=== PATIENT | male | born 1965 | race Hispanic/Latino ===

== ENCOUNTER 2017-03-23 08:41 | Emergency (ER) | payer MEDICAID, OTHER ==
[2017-03-23 09:05] VITALS: BMI 24.3
[2017-03-23 09:12] VITALS: TEMP 98
--- NOTE | 2017-03-23 09:25 | ED PDOC ---
Arrival/HPI <Mark Ferguson - Last Filed: 03/23/17 10:23> - General Historian: Patient - History of Present Illness Time/Duration: > week Symptom Onset: Gradual Symptom Course: Unchanged Quality: Stabbing Severity Level: Moderate Context: Exertion <Baldev Turner - Last Filed: 03/23/17 11:17> - General Chief Complaint: Back Pain Time Seen by Provider: 03/23/17 08:46 - History of Present Illness Narrative History of Present Illness (Text): 03/23/17 09:22 This is a 52 yo male, hx of HIV, presenting with chief complaint of neck pain x 3 weeks. Pain wasn't getting any better so pt came in. Says it started when he was picking up his dog. It radiates into his left shoulder. Has never happened before. Describes sensation as "sharp." Did not take any meds at home for the pain. Pain comes and goes. Lasts about 15-20 mins when it comes. Moving head around makes it worse. Denies trauma. Pt reports undetectable viral load and normal CD4 count. Pt follows regularly with ID. PMH: HIV PSH: lung biopsy Allergies: PCN FH: DM, cancer Home meds: complera Social hx: current smoker, 1 ppd. Denies drinking. Occasional marijuana user. 03/23/17 09:28 03/23/17 09:36 (Baldev Turner) Past Medical History - Provider Review Nursing Documentation Reviewed: Yes - Past History Past History: Non-Contributing - Infectious Disease Hx of Infectious Diseases: None - Tetanus Immunization Tetanus Immunization: Unknown - Hematological/Oncological Hx HIV: Yes - Psychiatric Hx Psychophysiologic Disorder: No Hx Substance Use: Yes (CANNABIS) - Surgical History Other/Comment: BX OF LUNG - Anesthesia Hx Anesthesia: Yes Hx Anesthesia Reactions: No Hx Malignant Hyperthermia: No - Suicidal Assessment Feels Threatened In Home Enviroment: No <Baldev Turner - Last Filed: 03/23/17 11:17> Family/Social History - Physician Review Nursing Documentation Reviewed: Yes Family/Social History: Diabetes, Neoplasm/Cancer Smoking Status: Heavy Smoker > 10 Cigarettes Daily Hx Alcohol Use: Yes Hx Substance Use: Yes (CANNABIS) Hx Substance Use Treatment: No <Baldev Turner - Last Filed: 03/23/17 11:17> Allergies/Home Meds <Tolerdonn,Mark - Last Filed: 03/23/17 10:23> <Baldev Turner - Last Filed: 03/23/17 11:17> Allergies/Adverse Reactions: Allergies Penicillins Allergy (Verified 09/25/15 12:16) RASH nuts Allergy (Uncoded 09/25/15 12:16) RASH Home Medications: Home Meds Medication Instructions Recorded Confirmed Emtricita/rilpivir/tenofovir 1 tab PO DAILY 06/11/14 03/23/17 [Complera 200 mg-25 mg-300 mg] Review of Systems - Review of Systems Constitutional: absent: Fatigue, Weight Change Eyes: absent: Vision Changes, Photophobia ENT: absent: Hearing Changes, Tinnitus Respiratory: absent: SOB, Cough Cardiovascular: absent: Chest Pain, Palpitations Gastrointestinal: absent: Abdominal Pain, Stool Changes Genitourinary Male: absent: Dysuria, Frequency Musculoskeletal: Neck Pain Skin: absent: Rash, Pruritis Neurological: absent: Headache, Dizziness Endocrine: absent: Diaphoresis, Polyuria Hemo/Lymphatic: absent: Adenopathy, Easy Bleeding Psychiatric: absent: Anxiety, Depression <Baldev Turner - Last Filed: 03/23/17 11:17> Physical Exam Temperature: Afebrile Blood Pressure: Normal Pulse: Tachycardic Respiratory Rate: Normal <Mark Ferguson - Last Filed: 03/23/17 10:23> Vital Signs Reviewed: Yes - Systems Exam Head: Present: Atraumatic, Normocephalic Pupils: Present: PERRL Extroacular Muscles: Present: EOMI Conjunctiva: Present: Normal Mouth: Present: Moist Mucous Membranes Neck: No: Normal Range of Motion (slightly reduced range of motion, flexion, extension), Meningeal Signs, MIDLINE TENDERNESS, Paraspinal Tenderness Respiratory/Chest: Present: Clear to Auscultation. No: Respiratory Distress Cardiovascular: Present: Normal S1, S2 Abdomen: Present: Normal Bowel Sounds. No: Tenderness, Peritoneal Signs Upper Extremity: Present: Normal Inspection. No: Normal ROM (left ext reduced active, passive rom) Lower Extremity: Present: Normal Inspection. No: Edema Neurological: Present: CN II-XII Intact, Speech Normal Skin: Present: Warm, Dry Psychiatric: Present: Alert, Oriented x 3, Normal Insight, Normal Concentration <Baldev Turner - Last Filed: 03/23/17 11:17> Vital Signs Temp Pulse Resp BP Pulse Ox 03/23/17 11:04 89 18 120/80 99 03/23/17 09:08 98 F 94 H 16 118/81 97 Medical Decision Making <Mark Ferguson - Last Filed: 03/23/17 10:23> <Baldev Turner - Last Filed: 03/23/17 11:17> ED Course and Treatment: 03/23/17 09:35 Seen and examined with the resident. Our history and physical exam reveals an HIV-positive gentleman who complains of left-sided neck pain with radiation into his left shoulder for approximately 3 weeks following lifting his dog. No numbness tingling or paresthesias. No weakness. No chest pain or dyspnea. No palpitations. (Mark Ferguson) - RAD Interpretation Radiology Orders: 03/23/17 09:13 CERVICAL SPINE AP & LATERAL [RAD] Stat - Medication Orders Current Medication Orders: Discontinued Medications Ketorolac Tromethamine (Toradol) 15 mg IVP STAT STA Stop: 03/23/17 09:14 Last Admin: 03/23/17 09:29 Dose: 15 mg MAR Pain Assessment Document 03/23/17 09:29 SF (Rec: 03/23/17 09:33 [id number] Pain Reassessment Is this a pain reassessment? Yes Sleep Is patient sleeping during reassessment? No Presence of Pain Presence of Pain Yes Pain Scale Used Pain Scale Used Numeric Location Left, Right or Bilateral Left Description Description Constant IVP Administration Document 03/23/17 09:29 SF (Rec: 03/23/17 09:33 [id number]) Charges for Administration # of IVP Administrations 1 - PA / [place] MGR / Resident Statement / has reviewed & agrees with the documentation as recorded. / has examined the patient and agrees with the treatment plan. <Mark Ferguson - Last Filed: 03/23/17 10:23> Disposition/Present on Arrival <Mark Ferguson - Last Filed: 03/23/17 10:23> - Present on Arrival Any Indicators Present on Arrival: No History of DVT/PE: No History of Uncontrolled Diabetes: No Urinary Catheter: No History of Decub. Ulcer: No History Surgical Site Infection Following: None - Disposition Have Diagnosis and Disposition been Completed?: Yes Disposition Time: 11:00 Patient Plan: Discharge <Baldev Turner - Last Filed: 03/23/17 11:17> - Disposition Diagnosis: Neck pain Disposition: HOME/ ROUTINE Condition: STABLE Discharge Instructions (ExitCare): Osteoarthritis (ED), Degenerative Disc Disease (ED) Prescriptions: Cyclobenzaprine [Cyclobenzaprine HCl] 10 mg PO DAILY #10 tab Naproxen 250 mg PO BID #60 tablet Referrals: Dustin Sesay, [Primary Care Provider] - Follow up with primary Forms: [facility] [employer] ([facility]) (Korean)
[2017-03-23 11:05] VITALS: BP 120/80; PULSE 89; RESP 18; O2SAT 99
--- NOTE | 2017-03-23 11:41 | RAD ---
PROCEDURE: Cervical Spine Radiographs. HISTORY: Pain. COMPARISON: None. FINDINGS: BONES: The vertebral bodies are maintained in height. The atlantoaxial articulation and odontoid process are suboptimally evaluated. There is grade 1 anterolisthesis at C4-5, likely degenerative in origin. DISC SPACES: There is multilevel degenerative disc disease at C3-4 through C6-7. Large anterior osteophytes are seen about the C5-6 disc space. SOFT TISSUES: Normal. No prevertebral soft tissue swelling. OTHER FINDINGS: None. IMPRESSION: Multilevel degenerative disc disease. Grade 1 anterolisthesis at C4-5. No evidence of fracture.
== END 2017-03-23 11:11 | disposition home or self-care (01) ==
LOC: ED 08:41
DX: M54.2 Cervicalgia (principal); F17.210 Nicotine dependence, cigarettes, uncomplicated; Z88.0 Allergy status to penicillin; Z83.3 Family history of diabetes mellitus
CPT/HCPCS: 72040; 96374; 99284; J1885

== ENCOUNTER 2017-08-08 10:59 | Emergency (ER) | payer MEDICAID, OTHER ==
[2017-08-08 11:00] VITALS: BMI 24.3
--- NOTE | 2017-08-08 11:22 | ED PDOC ---
Arrival/HPI - General Chief Complaint: Lower Extremity Problem/Injury Time Seen by Provider: 08/08/17 11:07 Historian: Patient - History of Present Illness Narrative History of Present Illness (Text): 08/08/17 11:12 52 y/o male, pmh including hiv, penicillin allergy, c/o lt. lower extremity pain x 3 days. Pt. stated that he has lt. lower extremity pain, radiating from the left lower back radiating to the left lower extremity, no rash, no numbness or tingling, occasional numbness and tingling on the left calf region, admits calf and thigh pain, no rash, no other medical or psychological complaints. Past Medical History - Provider Review Nursing Documentation Reviewed: Yes - Past History Past History: Non-Contributing - Infectious Disease Hx of Infectious Diseases: None - Tetanus Immunization Tetanus Immunization: Unknown - Cardiac Hx Cardiac Disorders: No - Pulmonary Hx Respiratory Disorders: No - Neurological Hx Neurological Disorder: No - HEENT Hx HEENT Disorder: No - Renal Hx Renal Disorder: No - Endocrine/Metabolic Hx Endocrine Disorders: No - Hematological/Oncological Hx Blood Disorders: Yes - Integumentary Hx Dermatological Disorder: No - Musculoskeletal/Rheumatological Hx Musculoskeletal Disorders: No - Gastrointestinal Hx Gastrointestinal Disorders: No - Genitourinary/Gynecological Hx Genitourinary Disorders: No - Psychiatric Hx Psychophysiologic Disorder: No Hx Substance Use: Yes (CANNABIS) - Surgical History Other/Comment: BX OF LUNG - Anesthesia Hx Anesthesia: Yes Hx Anesthesia Reactions: No Hx Malignant Hyperthermia: No - Suicidal Assessment Feels Threatened In Home Enviroment: No Family/Social History - Physician Review Nursing Documentation Reviewed: Yes Family/Social History: Unknown Family HX Smoking Status: Heavy Smoker > 10 Cigarettes Daily Hx Alcohol Use: Yes Hx Substance Use: Yes (CANNABIS) Hx Substance Use Treatment: No Allergies/Home Meds Allergies/Adverse Reactions: Allergies Penicillins Allergy (Verified 08/08/17 11:00) RASH nuts Allergy (Uncoded 08/08/17 11:00) RASH Home Medications: Home Meds Medication Instructions Recorded Confirmed Emtricita/rilpivir/tenofovir 1 tab PO DAILY 06/11/14 08/08/17 [Complera 200 mg-25 mg-300 mg] Review of Systems - Review of Systems Constitutional: absent: Fatigue, Fevers Eyes: absent: Vision Changes ENT: absent: Hearing Changes Respiratory: absent: SOB, Cough Cardiovascular: absent: Chest Pain Gastrointestinal: absent: Abdominal Pain, Nausea, Vomiting Musculoskeletal: Back Pain. absent: Arthralgias Skin: absent: Rash, Pruritis Neurological: absent: Headache Psychiatric: absent: Anxiety, Depression Physical Exam Vital Signs Reviewed: Yes Vital Signs Temp Pulse Resp BP Pulse Ox 08/08/17 12:33 94 H 18 131/71 98 08/08/17 11:02 97.6 F 71 16 137/88 97 Temperature: Afebrile Blood Pressure: Normal Pulse: Regular Respiratory Rate: Normal Appearance: Positive for: Well-Appearing, Non-Toxic, Comfortable Pain Distress: Moderate Mental Status: Positive for: Alert and Oriented X 3 - Systems Exam Head: Present: Atraumatic, Normocephalic Pupils: Present: PERRL Extroacular Muscles: Present: EOMI Conjunctiva: Present: Normal Mouth: Present: Moist Mucous Membranes Neck: Present: Normal Range of Motion Respiratory/Chest: Present: Clear to Auscultation, Good Air Exchange. No: Respiratory Distress, Accessory Muscle Use Cardiovascular: Present: Regular Rate and Rhythm, Normal S1, S2. No: Murmurs Abdomen: No: Tenderness, Distention, Peritoneal Signs Back: Present: Normal Inspection. No: CVA Tenderness, Midline Tenderness, Paraspinal Tenderness, Decubitus Ulcer Upper Extremity: Present: Normal Inspection. No: Cyanosis, Edema Lower Extremity: Present: Normal Inspection, NORMAL PULSES, Neurovascularly Intact, Capillary Refill < 2 s. No: Edema, Tenderness, Swelling Neurological: Present: GCS=15, Speech Normal, Motor Func Grossly Intact, Gait Normal, Memory Normal Skin: Present: Warm, Dry, Normal Color. No: Rashes Psychiatric: Present: Alert, Oriented x 3, Normal Insight, Normal Concentration Medical Decision Making ED Course and Treatment: 08/08/17 11:29 -labs/ck -LLE venuous doppler -CT Lumbar spine -IV toradol/valium/gabapentin -observe and reassess 08/08/17 13:37 -LLE Venuous Doppler: as per preliminary report, no acute DVT -EKG: Sinus Bradycardia @ 56 BPM, no ST elevation or depression, no T wave inversion (ordered by Dr. Blas). -CT Lumbar spine show: Multilevel disc bulge. Degenerative disc disease L5-S1. Central spinal stenosis L3-4 and L4-5. Multilevel neural foraminal stenosis as above. No focal disc herniation. No osseous fracture. -Labs are non-significant -CK within normal limit -Pt. feels much better with medications given in the ER, walking with normal gait and posture, decadron 8mg IV ordered for spinal stenosis. -Discharge home with motrin, flexeril, gabapentin, bed rest, follow up with your own pmd and neurosurgery within 2 days, return to the ER for any new or worsening signs or symptoms. - Lab Interpretations Lab Results: 08/08/17 11:39 08/08/17 11:39 Lab Results 08/08/17 11:39: WBC 5.6 D, RBC 4.35, Hgb 13.9 L, Hct 39.9 L, MCV 91.7, MCH 32.0 , MCHC 34.8, RDW 12.5, Plt Count 158, MPV 10.6, Gran % 49.6 L, Lymph % (Auto) 40.0 H, [place] % (Auto) 8.8 H, Eos % (Auto) 1.4 L, Baso % (Auto) 0.2, Gran # 2.78 , Lymph # (Auto) 2.2, [place] # (Auto) 0.5, Eos # (Auto) 0.1, Baso # (Auto) 0.01 08/08/17 11:39: Sodium 140, Potassium 4.1, Chloride 103, Carbon Dioxide 25, Anion Gap 16, BUN 24 H, Creatinine 0.9, Est GFR ( Amer) > 60, Est GFR ( Non-Af Amer) > 60, Random Glucose 105, Calcium 9.3, Magnesium 1.8, Total Bilirubin 0.3, AST 53, ALT 28, Alkaline Phosphatase 64, Total Creatine Kinase 153, Total Protein 7.0, Albumin 4.3, Globulin 2.7, Albumin/Globulin Ratio 1.6 I have reviewed the lab results: Yes - RAD Interpretation Radiology Orders: 08/08/17 11:22 LUMBAR SPINE W/O CONTRAST [CT] Stat DUPLEX LOWER EXTRM VEIN LEFT [US] Stat -LLE Venuous Doppler: as per preliminary report, no acute DVT -- CT LS Spine: Vertebral bodies maintained height. Transverse processes and posterior elements are intact. Normal alignment maintained. DISCS/SPINAL CANAL/NEURAL FORAMINA: L1-2: Unremarkable. L2-3: Mild disc bulge. No spinal or foraminal stenosis. No focal herniation. L3-4: Diffuse disc bulge. No focal herniation. Mild central spinal stenosis. Mild bilateral neural foraminal stenosis. L4-5: Diffuse disc bulge. No focal herniation. Central spinal stenosis. Moderate severe bilateral neural foraminal stenosis. Bilateral degenerative facet arthropathy with bony hypertrophy. L5-S1: Minimal disc bulge. Loss height of intervertebral disc space with vacuum disc phenomenon. Large osteophyte arising from the inferior dorsal aspect of the L5 vertebra. Moderate to severe bilateral neural foraminal stenosis. No central spinal stenosis. PARASPINAL SOFT TISSUES: Unremarkable. OTHER FINDINGS: None. IMPRESSION: Multilevel disc bulge. Degenerative disc disease L5-S1. Central spinal stenosis L3-4 and L4-5. Multilevel neural foraminal stenosis as above. No focal disc herniation. No osseous fracture. 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 Interpreted by ED Physician: Yes Type: 12 lead EKG - Medication Orders Current Medication Orders: Gabapentin (Neurontin) 300 mg PO STAT PRABHJOT PRN Reason: Protocol Last Admin: 08/08/17 12:33 Dose: 300 mg Dexamethasone 8 mg/ Sodium (Chloride) 52 mls @ 150 mls/hr IV ONCE ONE Stop: 08/08/17 13:56 Discontinued Medications Diazepam (Valium) 5 mg PO ONCE ONE PRN Reason: Protocol Stop: 08/08/17 11:25 Last Admin: 08/08/17 12:34 Dose: 5 mg Sodium Chloride (Sodium Chloride 0.9%) 1,000 mls @ 999 mls/hr IV .Q1H1M STA Stop: 08/08/17 12:26 Last Admin: 08/08/17 12:33 Dose: 999 mls/hr eMAR Start Stop Document 08/08/17 12:33 CARLENEO (Rec: 08/08/17 12:33 J[facility] [id number]) Intravenous Solution Start Date 08/08/17 Start Time 12:33 End Date 08/08/17 End time 13:33 Total Infusion Time 60 Ketorolac Tromethamine (Toradol) 30 mg IVP STAT STA Stop: 08/08/17 11:25 Last Admin: 08/08/17 12:34 Dose: 30 mg MAR Pain Assessment Document 08/08/17 12:34 [facility] (Rec: 08/08/17 12:34 [facility] [id number]) Pain Reassessment Is this a pain reassessment? No Sleep Is patient sleeping during reassessment? No Presence of Pain Presence of Pain Yes Pain Scale Used Pain Scale Used Numeric Location Left, Right or Bilateral Left Upper or Lower Lower Pain Location Body Site Leg Description Description Constant Intensity of Pain at present 5 IVP Administration Document 08/08/17 12:34 [facility] (Rec: 08/08/17 12:34 JAZ [id number]) Charges for Administration # of IVP Administrations 1 - PA / CERTIFIED [employer] / Resident Statement MD/ has reviewed & agrees with the documentation as recorded. Disposition/Present on Arrival - Present on Arrival Any Indicators Present on Arrival: No History of DVT/PE: No History of Uncontrolled Diabetes: No Urinary Catheter: No History of Decub. Ulcer: No History Surgical Site Infection Following: None - Disposition Have Diagnosis and Disposition been Completed?: Yes Diagnosis: Lumbar radiculopathy, Degenerative lumbar disc, Spinal stenosis of lumbar region Disposition: HOME/ ROUTINE Disposition Time: 11:29 Patient Plan: Discharge Patient Problems: Current Active Problems Problem Status Onset Lumbar radiculopathy Acute Degenerative lumbar disc Acute Spinal stenosis of lumbar region Acute Condition: IMPROVED Discharge Instructions (ExitCare): Spinal Stenosis, Radiculopathy (DC) Additional Instructions: -Discharge home with motrin, flexeril, gabapentin, bed rest, follow up with your own pmd and neurosurgery within 2 days, return to the ER for any new or worsening signs or symptoms. Prescriptions: Cyclobenzaprine [Cyclobenzaprine HCl] 10 mg PO TID PRN #21 tab PRN Reason: Other Gabapentin [Neurontin] 200 mg PO BID PRN #30 cap PRN Reason: Other Ibuprofen [Motrin] 600 mg PO QID PRN #30 tab PRN Reason: Other Referrals: Benoit Whatley MD [Staff Provider] - [place] [facility] [place] [facility] [place] - Follow up with primary Forms: WORK NOTE
[2017-08-08] MEDS ORDERED: Sodium Chloride 0.9% 1,000 ML IV STA (11:26)
[2017-08-08 11:45] LABS: BASO # 0.01 K/mm3 (0.0-2.0); BASO % 0.2 % (0.0-3.0); EOS # 0.1 (0.0-0.7); EOS % 1.4 % (1.5-5.0); GRAN # 2.78 (1.4-6.5); GRAN % 49.6 % (50.0-68.0); HEMOGLOBIN 13.9 g/dL (14.0-18.0); LYMPH # 2.2 (1.2-3.4); MEAN CELL VOLUME 91.7 fl (80.0-105.0); MEAN CORPUSCULAR HGB CONC 34.8 g/dl (31.0-37.0); MEAN PLATELET VOLUME 10.6 fl (7.0-11.0); MONO # 0.5 (0.1-0.6); MONO % 8.8 % (1.0-6.0); RBC 4.35 10^6/uL (3.5-6.1); RED CELL DISTRIBUTION WIDTH 12.5 % (11.5-14.5); WHITE BLOOD COUNT 5.6 10^3/ul (4.5-11.0)
[2017-08-08 11:59] LABS: ALB/GLOB RATIO 1.6 (1.1-1.8); ALBUMIN 4.3 g/dL (3.0-4.8); ALT/SGPT 28 U/L (7-56); AST/SGOT 53 U/L (17-59); BLOOD UREA NITROGEN 24 mg/dL (7-21); CALCIUM 9.3 mg/dL (8.4-10.5); GFR AFRICAN-AMERICAN > 60; GFR NON-AFRICAN AMERICAN > 60
[2017-08-08 12:35] VITALS: RESP 18; O2SAT 98
--- NOTE | 2017-08-08 12:57 | CT ---
PROCEDURE: CT Lumbar Spine without contrast HISTORY: LLE pain and lower back pain COMPARISON: None. TECHNIQUE: Axial computed tomography images were obtained of the lumbar spine without the use of intravenous contrast. Coronal and sagittal reformatted images were created and reviewed. Radiation dose: Total exam DLP = 739.90 mGy-cm. This CT exam was performed using one or more of the following dose reduction techniques: Automated exposure control, adjustment of the mA and/or kV according to patient size, and/or use of iterative reconstruction technique. FINDINGS: VERTEBRAE: Vertebral bodies maintained height. Transverse processes and posterior elements are intact. Normal alignment maintained. DISCS/SPINAL CANAL/NEURAL FORAMINA: L1-2: Unremarkable. L2-3: Mild disc bulge. No spinal or foraminal stenosis. No focal herniation. L3-4: Diffuse disc bulge. No focal herniation. Mild central spinal stenosis. Mild bilateral neural foraminal stenosis. L4-5: Diffuse disc bulge. No focal herniation. Central spinal stenosis. Moderate severe bilateral neural foraminal stenosis. Bilateral degenerative facet arthropathy with bony hypertrophy. L5-S1: Minimal disc bulge. Loss height of intervertebral disc space with vacuum disc phenomenon. Large osteophyte arising from the inferior dorsal aspect of the L5 vertebra. Moderate to severe bilateral neural foraminal stenosis. No central spinal stenosis. PARASPINAL SOFT TISSUES: Unremarkable. OTHER FINDINGS: None. IMPRESSION: Multilevel disc bulge. Degenerative disc disease L5-S1. Central spinal stenosis L3-4 and L4-5. Multilevel neural foraminal stenosis as above. No focal disc herniation. No osseous fracture.
[2017-08-08] MEDS ORDERED: Dexamethasone 4 mg/1 ml ONE (13:45)
[2017-08-08 13:46] VITALS: BP 128/69; PULSE 86; TEMP 98.2
--- NOTE | 2017-08-09 08:56 | CARD ---
APPROVED REPORT EKG Measurement Heart [id number] <Conclusion> Sinus bradycardia with premature atrial complexes
--- NOTE | 2017-08-09 19:43 | US ---
PROCEDURE: Left lower extremity venous US HISTORY: Leg pain and swelling. Evaluate for DVT. PHYSICIAN(S): Pillo Romo MD. TECHNIQUE: Duplex sonography and color-flow Doppler with graded compression were used to evaluate the deep venous system of the left lower extremity. FINDINGS: The visualized deep venous system of the left lower extremity is sonographically normal and compressible. Normal wave forms and augmentation are seen. There is no sonographic evidence for deep venous thrombosis in the visualized segments of the left lower extremity. IMPRESSION: 1. No sonographic evidence for deep venous thrombosis in the visualized segments of the left lower extremity.
== END 2017-08-08 13:53 | disposition home or self-care (01) ==
LOC: ED 10:59
DX: M51.36 Other intervertebral disc degeneration, lumbar region (principal); M48.061 Spinal stenosis, lumbar region without neurogenic claudication; M54.16 Radiculopathy, lumbar region; F17.210 Nicotine dependence, cigarettes, uncomplicated
CPT/HCPCS: 72131; 80053; 82550; 83735; 85025; 93005; 93971; 96361; 96365; 96375; 99283; J1100; J1885; J7040

== ENCOUNTER 2017-10-02 15:23 | Emergency (ER) | payer MEDICAID, OTHER ==
[2017-10-02 15:24] VITALS: BMI 24.3
[2017-10-02 15:31] VITALS: RESP 18; TEMP 98.6
--- NOTE | 2017-10-02 15:54 | ED PDOC ---
Arrival/HPI - General Chief Complaint: Eye Problem Time Seen by Provider: 10/02/17 15:51 Historian: Patient - History of Present Illness Narrative History of Present Illness (Text): 10/02/17 15:51 52 year old male, with no significant past medical history, presents to the emergency department complaining of getting saw dust in the right eye about an 1 hour ago. Patient states sensitivity to light. Patient states he flushed out the eye with minimal relief. Patient denies any fever, chills, chest pain, shortness of breath, nausea, vomiting, diarrhea, back pain, neck pain, headache , dizziness, or any other complaints. Time/Duration: 1 hour Symptom Onset: Sudden Symptom Course: Unchanged Activities at Onset: Light Past Medical History - Provider Review Nursing Documentation Reviewed: Yes - Past History Past History: Non-Contributing - Infectious Disease Hx of Infectious Diseases: None - Tetanus Immunization Tetanus Immunization: Unknown - Cardiac Hx Cardiac Disorders: No - Pulmonary Hx Respiratory Disorders: No - Neurological Hx Neurological Disorder: No - HEENT Hx HEENT Disorder: No - Renal Hx Renal Disorder: No - Endocrine/Metabolic Hx Endocrine Disorders: No - Hematological/Oncological Hx Blood Disorders: Yes - Integumentary Hx Dermatological Disorder: No - Musculoskeletal/Rheumatological Hx Musculoskeletal Disorders: No - Gastrointestinal Hx Gastrointestinal Disorders: No - Genitourinary/Gynecological Hx Genitourinary Disorders: No - Psychiatric Hx Psychophysiologic Disorder: No Hx Substance Use: Yes (CANNABIS) - Surgical History Other/Comment: BX OF LUNG - Anesthesia Hx Anesthesia: Yes Hx Anesthesia Reactions: No Hx Malignant Hyperthermia: No - Suicidal Assessment Feels Threatened In Home Enviroment: No Family/Social History - Physician Review Nursing Documentation Reviewed: Yes Family/Social History: Unknown Family HX Smoking Status: Heavy Smoker > 10 Cigarettes Daily Hx Alcohol Use: Yes Hx Substance Use: Yes (CANNABIS) Hx Substance Use Treatment: No Allergies/Home Meds Allergies/Adverse Reactions: Allergies Penicillins Allergy (Verified 08/08/17 11:00) RASH nuts Allergy (Uncoded 08/08/17 11:00) RASH Home Medications: Home Meds Medication Instructions Recorded Confirmed Emtricita/rilpivir/tenofovir 1 tab PO DAILY 06/11/14 08/08/17 [Complera 200 mg-25 mg-300 mg] Review of Systems - Physician Review All systems were reviewed & negative as marked: Yes - Review of Systems Eyes: Eye Pain (saw dust in eye) Respiratory: absent: SOB, Cough Physical Exam - Physical Exam Narrative Physical Exam (Text): 10/02/17 15:56 Gen: VS reviewed, alert, well developed, well nourished, nontoxic, mild distress Eye: Conjuctival Erythema. Physical Exam Limitations: Clinical Condition Vital Signs Reviewed: Yes Vital Signs Temp Pulse Resp BP Pulse Ox 10/02/17 15:28 98.6 F 83 18 143/87 99 Temperature: Afebrile Blood Pressure: Normal Pulse: Regular Respiratory Rate: Normal Appearance: Positive for: Well-Appearing, Non-Toxic, Comfortable Pain Distress: None Mental Status: Positive for: Alert and Oriented X 3 Medical Decision Making ED Course and Treatment: 10/02/17 15:57 Impression: 52 year old male presents to the emergency department after getting saw dust in the right eye. Plan: -- Fluorescein -- Reassess and disposition Progress Notes: 10/02/17 16:20 Tetracaine applied to right eye with sig improvement in eye pain. there is no foreign body identified. eye was flushed prior to my arrival at initial bedside eval. there is an abnormal fluorescein uptake in the right anterior cornea overlying the pupil, vertically oriented and streaky, consistent with right corneal abrasion. - Medication Orders Current Medication Orders: Discontinued Medications Fluorescein Sodium ([id number]-G-[id number] A.T.) 1 mg OD ONCE ONE Stop: 10/02/17 16:04 Last Admin: 10/02/17 16:10 Dose: 1 mg - Scribe Statement The provider has reviewed the documentation as recorded by the Patel Poon All medical record entries made by the Patel were at my direction and personally dictated by me. I have reviewed the chart and agree that the record accurately reflects my personal performance of the history, physical exam, medical decision making, and the department course for this patient. I have also personally directed, reviewed, and agree with the discharge instructions and disposition. Disposition/Present on Arrival - Present on Arrival Any Indicators Present on Arrival: No History of DVT/PE: No History of Uncontrolled Diabetes: No Urinary Catheter: No History of Decub. Ulcer: No History Surgical Site Infection Following: None - Disposition Have Diagnosis and Disposition been Completed?: Yes Diagnosis: Corneal abrasion, right Disposition: HOME/ ROUTINE Disposition Time: 16:23 Patient Problems: Current Active Problems Problem Status Onset Corneal abrasion, right Acute Condition: STABLE Discharge Instructions (ExitCare): Corneal Abrasion Additional Instructions: you must follow up with the safety specialist to ensure your eye heals well. Prescriptions: Erythromycin 0.5% [Erythromycin 0.5% Oint] 3.5 gm OP QID #1 tube [facility] - Follow up with primary Alexandr Cedeno MD [Staff Provider] - Follow up with primary Forms: [employer] (Polish)
[2017-10-02] MEDS ORDERED: Fluorescein 1 mg Ophthalmic Strip OD ONE (16:03)
[2017-10-02 16:38] VITALS: BP 140/85; PULSE 80; O2SAT 100
== END 2017-10-02 16:35 | disposition home or self-care (01) ==
LOC: ED 15:23
DX: S05.01XA Injury of conjunctiva and corneal abrasion without foreign body, right eye, initial encounter (principal); X58.XXXA Exposure to other specified factors, initial encounter; F17.210 Nicotine dependence, cigarettes, uncomplicated

== ENCOUNTER 2018-08-25 14:27 | Emergency (ER) | payer MEDICAID, OTHER ==
[2018-08-25 14:28] VITALS: BMI 24.3
[2018-08-25 14:52] VITALS: BP 109/71; PULSE 96; RESP 18; TEMP 99; O2SAT 98
--- NOTE | 2018-08-25 16:32 | RAD ---
Date of service: 08/25/2018 HISTORY: chest pain COMPARISON: No prior. FINDINGS: LUNGS: The lungs are hyperinflated and there is peribronchial thickening with chronic changes in both lungs. No focal consolidation. There are multiple surgical clips overlying the right hemithorax PLEURA: No pleural effusions or pneumothorax. CARDIOVASCULAR: The heart is normal in size. No aortic atherosclerotic calcifications present. OSSEOUS STRUCTURES: Within normal limits for the patient's age. VISUALIZED UPPER ABDOMEN: Normal. OTHER FINDINGS: None. IMPRESSION: No active pulmonary disease. COPD.
--- NOTE | 2018-08-25 16:40 | ED PDOC ---
Arrival/HPI - General Chief Complaint: Upper Extremity Problem/Injury Time Seen by Provider: 08/25/18 15:10 Historian: Patient - History of Present Illness Narrative History of Present Illness (Text): 08/25/18 16:34 53 year old M with pmh of HIV presents with chief complaint of constant left arm pain radiating to left shoulder blade and to front of chest (active chest pain). Patient mentions pain is exacerbate when sitting up and is not exacerbated when walking or breathing. Sensations of left upper extremity is intact but feels weak. He denies any injuries, falls, trauma, neck pain or paresthesia. He denies taking any pain medications. Patient recalls recent cd4 count unremarkable. Patient denies any fevers, chills, headache, dizziness, chest pain, cough, abdominal pain, nausea, vomiting, diarrhea, or any other complaint. Symptom Onset: Sudden Symptom Course: Unchanged Activities at Onset: Light Context: Home Past Medical History - Provider Review Nursing Documentation Reviewed: Yes - Past History Past History: Non-Contributing - Infectious Disease Hx of Infectious Diseases: None - Tetanus Immunization Tetanus Immunization: Unknown - Cardiac Hx Cardiac Disorders: No - Pulmonary Hx Respiratory Disorders: No - Neurological Hx Neurological Disorder: No - HEENT Hx HEENT Disorder: No - Renal Hx Renal Disorder: No - Endocrine/Metabolic Hx Endocrine Disorders: No - Hematological/Oncological Hx Blood Disorders: Yes - Integumentary Hx Dermatological Disorder: No - Musculoskeletal/Rheumatological Hx Musculoskeletal Disorders: No - Gastrointestinal Hx Gastrointestinal Disorders: No - Genitourinary/Gynecological Hx Genitourinary Disorders: No - Psychiatric Hx Psychophysiologic Disorder: No Hx Substance Use: Yes (CANNABIS) - Surgical History Other/Comment: BX OF LUNG - Anesthesia Hx Anesthesia: Yes Hx Anesthesia Reactions: No Hx Malignant Hyperthermia: No - Suicidal Assessment Feels Threatened In Home Enviroment: No Family/Social History - Physician Review Nursing Documentation Reviewed: Yes Family/Social History: Unknown Family HX Smoking Status: Heavy Smoker > 10 Cigarettes Daily Hx Alcohol Use: Yes Hx Substance Use: Yes (CANNABIS) Hx Substance Use Treatment: No Allergies/Home Meds Allergies/Adverse Reactions: Allergies Penicillins Allergy (Verified 08/08/17 11:00) RASH nuts Allergy (Uncoded 08/08/17 11:00) RASH Home Medications: Home Meds Medication Instructions Recorded Confirmed Emtricita/rilpivir/tenofovir 1 tab PO DAILY 06/11/14 08/25/18 [Complera 200 mg-25 mg-300 mg] Review of Systems - Physician Review All systems were reviewed & negative as marked: Yes - Review of Systems Constitutional: absent: Fevers ENT: absent: Sore Throat, Rhinorrhea, Epistaxis Respiratory: absent: SOB, Cough, Wheezing Cardiovascular: Chest Pain. absent: Palpitations, DOYLE, Orthopnea, Syncope Gastrointestinal: absent: Abdominal Pain, Constipation, Diarrhea, Nausea, Vomiting, Hematochezia, Hematemesis Genitourinary Male: absent: Dysuria, Hematuria Musculoskeletal: Arthralgias (left upper extremity). absent: Neck Pain Skin: absent: Rash, Ulcer Neurological: absent: Headache, Dizziness, Disequilibrium Physical Exam Vital Signs Reviewed: Yes Vital Signs Temp Pulse Resp BP Pulse Ox 08/25/18 14:48 99 F 96 H 18 109/71 98 Temperature: Afebrile Blood Pressure: Normal Pulse: Tachycardic Respiratory Rate: Normal Appearance: Positive for: Well-Appearing, Non-Toxic, Comfortable Pain Distress: Mild Mental Status: Positive for: Alert and Oriented X 3 - Systems Exam Head: Present: Atraumatic, Normocephalic Pupils: Present: PERRL Extroacular Muscles: Present: EOMI Conjunctiva: Present: Normal Mouth: Present: Moist Mucous Membranes Neck: Present: Normal Range of Motion. No: MIDLINE TENDERNESS, Paraspinal Tenderness Respiratory/Chest: Present: Clear to Auscultation, Good Air Exchange. No: Respiratory Distress, Accessory Muscle Use Cardiovascular: Present: Regular Rate and Rhythm, Normal S1, S2. No: Murmurs Abdomen: No: Tenderness, Distention, Peritoneal Signs Back: Present: Normal Inspection. 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 No: Cyanosis, Edema, Swelling, Deformity Lower Extremity: Present: Normal Inspection. No: Edema Neurological: Present: GCS=15, CN II-XII Intact, Speech Normal Skin: Present: Warm, Dry, Normal Color. No: Rashes Psychiatric: Present: Alert, Oriented x 3, Normal Insight, Normal Concentration Medical Decision Making ED Course and Treatment: 08/25/18 16:40 Impression: 53 year old M presents with chief complaint of constant left arm pain radiating to left shoulder blade and to front of chest (active chest pain). Patient mentions pain is exacerbate when sitting up and is not exacerbated when walking or breathing. Sensations of left upper extremity is intact but feels weak. He denies any injuries, falls, trauma, neck pain or paresthesia. He denies taking any pain medications. Patient recalls recent cd4 count unremarkable. Patient denies any fevers, chills, headache, dizziness, chest pain, cough, abdominal pain, nausea, vomiting, diarrhea, or any other complaint. Plan: -- CT Cervical Spine w/o contrast -- Labs -- EKG -- Reassess and disposition Prior Visits: Notes and results from previous visits were reviewed. Patient was last seen in the emergency department on Progress Notes: 08/25/18 17:50 Chest X-ray -- No active pulmonary disease 08/25/18 17:00 Patient eloped from the emergency department prior to completing all studies. - RAD Interpretation Radiology Orders: 08/25/18 16:03 CERVICAL SPINE W/O CONTRAST [CT] Stat CHEST PORTABLE [RAD] Stat - EKG Interpretation EKG Interpretation (Text): 08/25/18 16:10 Reviewed EKG, shows: NSR at 66 BPM. Normal Todd. Normal Intervals. RBBB. No ST elevations. Interpreted by ED Physician: Yes Type: 12 lead EKG - Scribe Statement The provider has reviewed the documentation as recorded by the Patel Rodriguez All medical record entries made by the Peteribcharleen were at my direction and personally dictated by me. I have reviewed the chart and agree that the record accurately reflects my personal performance of the history, physical exam, medical decision making, and the department course for this patient. I have also personally directed, reviewed, and agree with the discharge instructions and disposition. Disposition/Present on Arrival - Present on Arrival Any Indicators Present on Arrival: No History of DVT/PE: No History of Uncontrolled Diabetes: No Urinary Catheter: No History of Decub. Ulcer: No History Surgical Site Infection Following: None - Disposition Have Diagnosis and Disposition been Completed?: Yes Diagnosis: Left arm pain Disposition: ELOPEMENT - ER ONLY Disposition Time: 17:00 Patient Problems: Current Active Problems Problem Status Onset Left arm pain Acute Condition: STABLE Forms: [employer] (Palauan)
[2018-08-25 16:45] LABS: BASO # 0.02 K/mm3 (0.0-2.0); BASO % 0.3 % (0.0-3.0); EOS # 0.1 (0.0-0.7); HEMOGLOBIN 13.4 g/dL (14.0-18.0); LYMPH # 2.4 (1.2-3.4); LYMPH % 37.4 % (22.0-35.0); MEAN CELL VOLUME 92.4 fl (80.0-105.0); MEAN CORPUSCULAR HGB CONC 34.6 g/dl (31.0-37.0); MONO # 0.4 (0.1-0.6); RBC 4.19 10^6/uL (3.5-6.1); WHITE BLOOD COUNT 6.3 10^3/uL (4.5-11.0)
[2018-08-25 16:52] LABS: ALB/GLOB RATIO 1.5 (1.1-1.8); ALT/SGPT 18 U/L (7-56); AST/SGOT 21 U/L (17-59); BLOOD UREA NITROGEN 19 mg/dL (7-21); CALCIUM 9.1 mg/dL (8.4-10.5); GFR NON-AFRICAN AMERICAN > 60
[2018-08-25 17:04] LABS: TROPONIN I < 0.01 ng/mL
--- NOTE | 2018-08-25 20:56 | CARD ---
APPROVED REPORT Date of service: 08/25/2018 EKG Measurement Heart [id number] <Conclusion> Normal sinus rhythm Right bundle branch block Abnormal ECG
== END 2018-08-25 17:00 | disposition left against medical advice (07) ==
LOC: ED 14:27
DX: M79.602 Pain in left arm (principal); F17.210 Nicotine dependence, cigarettes, uncomplicated